=== PATIENT | male | born 1970 | race American Indian/Alaskan Native ===

== ENCOUNTER 2019-01-05 10:19 | Emergency (ER) | payer SELFPAY ==
[2019-01-05] MEDS ORDERED: BACTRIM DS PO ONE (14:09)
[2019-01-05] MEDS ORDERED: IBUPROFEN PO ONE (14:10)
--- NOTE | 2019-01-05 14:15 | Emergency Department Report ---
Abscess Boil HPI - HPI Chief Complaint: Skin/Abscess/Foreign Body Stated Complaint: ABCESS Time Seen by Provider: 01/05/19 13:21 Location: Back History: Yes Pain, Yes Purulent Drainage, Yes Previous History, No Fever, No Numbness, No Foreign Body, No Insect Bite HPI: Reports cellulitis on back for approximately 3 days. Addl Reference Text: Reports hx HIV compliant with anti-retrovirals. Reports last CD4 count approximately 450 Home Medications: Previous Rx's Medication Instructions Recorded Last Taken Type ALBUTEROL Inhaler(NF) [VENTOLIN 2 puff IH Q4-6H PRN #1 inha 11/10/18 Unknown Rx Inhaler(NF)] Prednisone [predniSONE 10 mg 10 mg PO .TAPER #1 tab.ds.pk 11/10/18 Unknown Rx (6-Day Pack, 21 Tabs)] Ibuprofen [Motrin 600 MG tab] 600 mg PO Q8H PRN #12 tablet 01/05/19 Unknown Rx Sulfamethoxazole/Trimethoprim 1 each PO BID 10 Days #20 tablet 01/05/19 Unknown Rx [Bactrim DS TAB] Allergies/Adverse Reactions: Allergies Allergy/AdvReac Type Severity Reaction Status Date / Time No Known Allergies Allergy Verified 01/05/19 10:25 ED Review of Systems ROS: Stated complaint: ABCESS Other details as noted in HPI Other: GENERAL: No weight change, fatigue, weakness, fever, chills, or night sweats SKIN: Reports cellulitis on back left shoulder. No changes itching, no jaundice HEAD: No trauma, headache, or visual changes EYES: No blurriness, tearing, itching, acute visual loss, conjunctival discoloration, or scleral icterus EARS: No hearing loss, tinnitus, vertigo, or earache NOSE: No rhinorrhea, stuffiness, sneezing, itching, or epistaxis MOUTH: No bleeding gums, hoarseness, sore throat, or swelling CARDIAC: No new murmur, chest pain, palpitations, dyspnea on exertion, orthopnea, PND, or edema RESPIRATORY: No shortness of breath, wheeze, cough, sputum production, hemoptys is, pneumonia, asthma, bronchitis, or emphysema GI: No change in appetite, nausea, vomiting, dysphagia, change in bowel frequency, diarrhea, constipation, bleeding, hematemesis, melena, hematochezia, or abdominal pain URINARY: No frequency, urgency, polyuria, dysuria, hematuria, or incontinence MUSCULOSKELETAL: No muscle weakness, joint stiffness, decrease in range of motion, redness, swelling NEUROLOGIC: No loss of sensation, numbness, tingling, tremors, weakness, paralysis, seizures HEMATOLOGIC: No anemia, easy bruising, bleeding, petechiae, or purpura ENDOCRINE: No hot or cold intolerance, sweating, polyuria, polydipsia or, polyphagia no thyroid problems PSYCHIATRIC: No change in mood, no anxiety, no depression ED Past Medical Hx - Past Medical History Hx Hypertension: Yes Hx Asthma: Yes - Social History Smoking Status: Current Every Day Smoker Substance Use Type: None - Medications Home Medications: Home Medications Medication Instructions Recorded Confirmed Last Taken Type ALBUTEROL Inhaler(NF) [VENTOLIN 2 puff IH Q4-6H PRN #1 inha 11/10/18 Unknown Rx Inhaler(NF)] Prednisone [predniSONE 10 mg 10 mg PO .TAPER #1 tab.ds.pk 11/10/18 Unknown Rx (6-Day Pack, 21 Tabs)] Ibuprofen [Motrin 600 MG tab] 600 mg PO Q8H PRN #12 tablet 01/05/19 Unknown Rx Sulfamethoxazole/Trimethoprim 1 each PO BID 10 Days #20 tablet 01/05/19 Unknown Rx [Bactrim DS TAB] ED Abscess Boil Physical Exam - Exam General: Vital signs noted. No distress. Alert and acting appropriately. Exam: GENERAL: Patient in no acute distress. HEAD: Normocephalic, atraumatic. HEART: Normal circulation. LUNGS: No respiratory distress. MUSCULOSKELETAL: Normal joint range of motion, no redness, no swelling, no tenderness. NEUROLOGIC: GCS 15, Alert and Oriented x3, Cranial nerves intact, normal sensation, normal strength, normal gait, no cerebellar deficit. PSYCHIATRIC: No homicidal or suicidal ideation, no anxiety, no depression, no hallucinations. SKIN: Left superficial skin over scapula with yellowish drainage, mild erythema. Diameter approximately 3 cm. Skin is warm and dry, ED Course Vital Signs 01/05/19 10:24 Temperature 98.8 F Pulse Rate 102 H Respiratory 18 Rate Blood Pressure 153/100 O2 Sat by Pulse 98 Oximetry Critical care attestation.: If time is entered above; I have spent that time in minutes in the direct care of this critically ill patient, excluding procedure time. ED Medical Decision Making - Medical Decision Making Patient comfortable. Plan discharge with outpatient follow up. Agrees to return if any worsening. ED Disposition Clinical Impression: Cellulitis Qualifiers: Site of cellulitis: unspecified site Qualified Code(s): L03.90 - Cellulitis, unspecified Disposition: TO HOME OR SELFCARE Is pt being admited?: No Condition: Stable Instructions: Cellulitis (ED) Prescriptions: Sulfamethoxazole/Trimethoprim [Bactrim DS TAB] 1 each PO BID 10 Days #20 tablet Ibuprofen [Motrin 600 MG tab] 600 mg PO Q8H PRN #12 tablet PRN Reason: Pain Referrals: YULISA ERAZO MD [Primary Care Provider] - 3-5 Days
[2019-01-05 14:24] VITALS: BP 159/99
== END 2019-01-05 14:25 | disposition home or self-care (01) ==
LOC: ED 10:19
DX: L03.312 Cellulitis of back [any part except buttock and flank] (principal); I10 Essential (primary) hypertension; J45.909 Unspecified asthma, uncomplicated; Z79.899 Other long term (current) drug therapy
CPT/HCPCS: 99282

== ENCOUNTER 2019-02-04 00:15 | Emergency (ER) | payer SELFPAY ==
[2019-02-04] MEDS: DUONEB *Not for PRN Use IH ONE ×2 (01:03→02:15)
[2019-02-04 01:34] LABS: Hematocrit 37.4 % (35.5-45.6); Hemoglobin 12.5 gm/dl (11.8-15.2); Mean Corpuscular HGB Conc 34 % (32-34); Mean Corpuscular Volume 77 fl (84-94); Platelet Count 200 K/mm3 (140-440); Red Blood Count 4.84 M/mm3 (3.65-5.03); Red Cell Distribution Width 16.8 % (13.2-15.2)
[2019-02-04] MEDS ORDERED: MAGNESIUM SULFATE 2GM/50ML 2 GM/50 ML BAG IV ONE (01:36)
[2019-02-04] MEDS ORDERED: SOLU-Medrol IV ONE (01:36)
[2019-02-04] MEDS ORDERED: ATROVENT IH ONE (01:36)
[2019-02-04] MEDS ORDERED: PROVENTIL IH ONE (01:36)
--- NOTE | 2019-02-04 01:42 | XRay Report ---
CHEST 1 VIEW INDICATION / CLINICAL INFORMATION: sob, cp, asthma. COMPARISON: None available. FINDINGS: SUPPORT DEVICES: None. HEART / MEDIASTINUM: No significant abnormality. LUNGS / PLEURA: No significant pulmonary or pleural abnormality. No pneumothorax. ADDITIONAL FINDINGS: No significant additional findings. IMPRESSION: No acute pulmonary or pleural abnormality. Signer Name: Jose Francisco Mayo MD FACR Signed: 02/04/2019 1:38 AM Workstation Name: [id number]
[2019-02-04 01:55] LABS: BUN/Creatinine Ratio 13; Blood Urea Nitrogen 14 mg/dL (9-20); Calcium 9.1 mg/dL (8.4-10.2); Hemolysis Index 7
[2019-02-04 03:12] LABS: Hypochromasia 1+; Total Cells Counted 100
--- NOTE | 2019-02-04 03:12 | Emergency Department Report ---
ED Shortness of Breath HPI - General Chief Complaint: Dyspnea/Respdistress Stated Complaint: DIFFICULTY IN BREATHING Time Seen by Provider: 02/04/19 01:35 Source: patient Mode of arrival: Ambulatory Limitations: No Limitations - History of Present Illness Initial Comments: 48-year-old male with past medical history of asthma and hypertension presents to the hospital complaining of shortness of breath and wheezing 2 days. Patient has been using his home nebulizer and inhalers without relief. Patient having generalized chest tightness, wheezing, and nonproductive cough. No complaints of fever, calf tenderness, or leg edema. Patient wheezing upon arrival which persists despite one dual neb prior to my evaluation. Patient is not currently on steroids and denies previous history of intubations. - Related Data Previous Rx's Medication Instructions Recorded Last Taken Type ALBUTEROL Inhaler(NF) [VENTOLIN 2 puff IH Q4-6H PRN #1 inha 11/10/18 Unknown Rx Inhaler(NF)] Ibuprofen [Motrin 600 MG tab] 600 mg PO Q8H PRN #12 tablet 01/05/19 Unknown Rx Sulfamethoxazole/Trimethoprim 1 each PO BID 10 Days #20 tablet 01/05/19 Unknown Rx [Bactrim DS TAB] Prednisone [predniSONE 10 mg 10 mg PO .TAPER #1 tab.ds.pk 02/04/19 Unknown Rx (6-Day Pack, 21 Tabs)] Allergies Allergy/AdvReac Type Severity Reaction Status Date / Time No Known Allergies Allergy Verified 01/05/19 10:25 ED Review of Systems ROS: Stated complaint: DIFFICULTY IN BREATHING Other details as noted in HPI Comment: All other systems reviewed and negative ED Past Medical Hx - Past Medical History Previous Medical History?: Yes Hx Hypertension: Yes Hx Asthma: Yes - Surgical History Past Surgical History?: No - Social History Smoking Status: Current Every Day Smoker Substance Use Type: Alcohol - Medications Home Medications: Home Medications Medication Instructions Recorded Confirmed Last Taken Type ALBUTEROL Inhaler(NF) [VENTOLIN 2 puff IH Q4-6H PRN #1 inha 11/10/18 Unknown Rx Inhaler(NF)] Ibuprofen [Motrin 600 MG tab] 600 mg PO Q8H PRN #12 tablet 01/05/19 Unknown Rx Sulfamethoxazole/Trimethoprim 1 each PO BID 10 Days #20 tablet 01/05/19 Unknown Rx [Bactrim DS TAB] Prednisone [predniSONE 10 mg 10 mg PO .TAPER #1 tab.ds.pk 02/04/19 Unknown Rx (6-Day Pack, 21 Tabs)] ED Physical Exam - General Limitations: No Limitations - Other Other exam information: General: No limitations, patient is alert in no acute distress Head exam: Atraumatic, normocephalic Eyes exam: Normal appearance ENT: Moist mucous membrane, normal oropharynx Neck exam: Normal inspection, full range of motion, no meningismus nontender Respiratory exam: Bilateral wheezing without Cardiovascular: Normal rate and rhythm, normal heart sounds Abdomen: Soft, nondistended, and nontender, with normal bowel sounds, no rebound, or guarding Extremity: Full range of motion normal inspection no deformity, tenderness or leg edema Back: Normal Inspection, full range of motion, no tenderness Neurologic: Alert, oriented x3, cranial nerves intact, no motor or sensory deficit Psychiatric: normal affect, normal mood Skin: Warm, dry, intact ED Course Vital Signs 02/04/19 02/04/19 02/04/19 00:18 01:10 03:14 Temperature 98.0 F Pulse Rate 102 H 96 H Pulse Rate [ 88 Bilateral Throughout] Respiratory 18 22 Rate Respiratory 20 Rate [Bilateral Throughout] Blood Pressure 179/111 Blood Pressure 132/97 [Left] O2 Sat by Pulse 94 96 Oximetry 02/04/19 04:30 Temperature Pulse Rate 94 H Pulse Rate [ Bilateral Throughout] Respiratory 21 Rate Respiratory Rate [Bilateral Throughout] Blood Pressure Blood Pressure 148/90 [Left] O2 Sat by Pulse 95 Oximetry ED Medical Decision Making - Lab Data Result diagrams: 02/04/19 01:20 02/04/19 01:22 Lab Results 02/04/19 02/04/19 02/04/19 Range/Units 01:20 01:22 04:25 WBC 6.2 (4.5-11.0) K/mm3 RBC 4.84 (3.65-5.03) M/mm3 Hgb 12.5 (11.8-15.2) gm/dl Hct 37.4 (35.5-45.6) % MCV 77 L (84-94) fl MCH 26 L (28-32) pg MCHC 34 (32-34) % RDW 16.8 H (13.2-15.2) % Plt Count 200 (140-440) K/mm3 Eos % (Auto) Cancellation Clerk Add Manual Diff Complete Total Counted 100 Seg Neuts % (Manual) 51.0 (40.0-70.0) % Band Neutrophils % 0 % Lymphocytes % (Manual) 26.0 (13.4-35.0) % Reactive Lymphs % (Man) 0 % Monocytes % (Manual) 8.0 H (0.0-7.3) % Eosinophils % (Manual) 14.0 H (0.0-4.3) % Basophils % (Manual) 1.0 (0.0-1.8) % Metamyelocytes % 0 % Myelocytes % 0 % Promyelocytes % 0 % Blast Cells % 0 % Nucleated RBC % Not Reportable Seg Neutrophils # Man 3.2 (1.8-7.7) K/mm3 Band Neutrophils # 0.0 K/mm3 Lymphocytes # (Manual) 1.6 (1.2-5.4) K/mm3 Abs React Lymphs (Man) 0.0 K/mm3 Monocytes # (Manual) 0.5 (0.0-0.8) K/mm3 Eosinophils # (Manual) 0.9 H (0.0-0.4) K/mm3 Basophils # (Manual) 0.1 (0.0-0.1) K/mm3 Metamyelocytes # 0.0 K/mm3 Myelocytes # 0.0 K/mm3 Promyelocytes # 0.0 K/mm3 Blast Cells # 0.0 K/mm3 WBC Morphology Not Reportable Hypersegmented Neuts Not Reportable Hyposegmented Neuts Not Reportable Hypogranular Neuts Not Reportable Smudge Cells Not Reportable Toxic Granulation Not Reportable Toxic Vacuolation Not Reportable Dohle Bodies Not Reportable Pelger-Huet Anomaly Not Reportable Shelly Rods Not Reportable Platelet Estimate Not Reportable Clumped Platelets Not Reportable Plt Clumps, EDTA Not Reportable Large Platelets Not Reportable Giant Platelets Not Reportable Platelet Satelliting Not Reportable Plt Morphology Comment Not Reportable RBC Morphology Not Reportable Dimorphic RBCs Not Reportable Polychromasia Not Reportable Hypochromasia 1+ Poikilocytosis Not Reportable Anisocytosis Not Reportable Microcytosis Not Reportable Macrocytosis Not Reportable Spherocytes Not Reportable Pappenheimer Bodies Not Reportable Sickle Cells Not Reportable Target Cells Not Reportable Tear Drop Cells Not Reportable Ovalocytes Not Reportable Helmet Cells Not Reportable Ruvalcaba-Alix Bodies Not Reportable Dysart Rings Not Reportable Carol Cells Not Reportable Bite Cells Not Reportable Crenated Cell Not Reportable Elliptocytes Not Reportable Acanthocytes (Spur) Not Reportable Rouleaux Not Reportable Hemoglobin C Crystals Not Reportable Schistocytes Not Reportable Malaria parasites Not Reportable Alexis Bodies Not Reportable Hem Pathologist Commnt No Sodium 136 L (137-145) mmol/L Potassium 3.7 (3.6-5.0) mmol/L Chloride 101.7 (98-107) mmol/L Carbon Dioxide 27 (22-30) mmol/L Anion Gap 11 mmol/L BUN 14 (9-20) mg/dL Creatinine 1.1 (0.8-1.5) mg/dL Estimated GFR > 60 ml/min BUN/Creatinine Ratio 13 % Glucose 81 (75-100) mg/dL Calcium 9.1 (8.4-10.2) mg/dL CK-MB (CK-2) 7.8 H (0.0-4.0) ng/mL Troponin T 0.065 H (0.00-0.029) ng/mL - EKG Data -: EKG Interpreted by Ne EKG shows normal: sinus rhythm, ST-T waves (no stemi) Rate: normal (97) - EKG Data When compared to previous EKG there are: previous EKG unavailable - Radiology Data Radiology results: report reviewed cxr: naf - Medical Decision Making repeat trop 0.037 trop mildly elevated without cardiac symptoms. Patient states he has chest tightness associated wheezing or asthma. The troponin shows that level has decreased. Patient felt better with ED treatment for asthma will be discharged. - Differential Diagnosis asthma, CHF, DE, pneumonia Critical Care Time: No Critical care attestation.: If time is entered above; I have spent that time in minutes in the direct care of this critically ill patient, excluding procedure time. ED Disposition Clinical Impression: Asthma exacerbation Disposition: DC-01 TO HOME OR SELFCARE Is pt being admited?: No Does the pt Need Aspirin: No Condition: Stable Instructions: Asthma (ED) Additional Instructions: Take the medication as prescribed. Follow up with your doctor or the clinic/doctor provided. Return if symptoms worsen as indicated by your discharge instructions Prescriptions: Prednisone [predniSONE 10 mg (6-Day Pack, 21 Tabs)] 10 mg PO .TAPER #1 tab.ds.pk Referrals: [facility] MD AMANDA [Primary Care Provider] - 3-5 Days Time of Disposition: 06:05
[2019-02-04 04:44] VITALS: BP 148/90
[2019-02-04 05:23] LABS: Creatine Kinase MB 7.8 ng/mL (0.0-4.0)
[2019-02-04 06:18] LABS: Chol/HDL Ratio 3.77 %
== END 2019-02-04 06:10 | disposition home or self-care (01) ==
LOC: ED 00:15
DX: J45.901 Unspecified asthma with (acute) exacerbation (principal); I10 Essential (primary) hypertension; J45.909 Unspecified asthma, uncomplicated; F17.200 Nicotine dependence, unspecified, uncomplicated; Z79.899 Other long term (current) drug therapy
CPT/HCPCS: 36415; 71045; 80048; 80061; 82550; 82553; 84484; 85007; 85025; 93005; 93010; 94644; 96365; 96375; 99284; J2930; J3475

== ENCOUNTER 2019-04-26 21:25 | Emergency (ER) | payer OTHER ==
[2019-04-26 21:37] VITALS: BP 118/74
--- NOTE | 2019-04-26 21:47 | Event Note ---
ED Screening Note Date of service: 04/26/19 Time: 21:43 ED Screening Note: This is a 48 y.o. M. that presents to the ER with cough, chills, and chest pain x 2 days. PMH of asthma, HIV, and HTN Patient states he started taking bactrim yesterday. This initial assessment/diagnostic orders/clinical plan/treatment(s) is/are subject to change based on patients health status, clinical progression and re- assessment by fellow clinical providers in the ED. Further treatment and workup at subsequent clinical providers discretion. Patient/guardian urged not to elope from the ED as their condition may be serious if not clinically assessed and managed. Initial orders include: CXR
[2019-04-26] MEDS ORDERED: DUONEB *Not for PRN Use IH ONE (22:15)
[2019-04-26] MEDS ORDERED: ROCEPHIN IM ONE (22:15)
[2019-04-26] MEDS ORDERED: XYLOCAINE 1% MPF 5 mL INFILTRATI ONE (22:15)
--- NOTE | 2019-04-26 22:17 | XRay Report ---
CHEST 2 VIEWS INDICATION / CLINICAL INFORMATION: MAIN: cough/DEEJAY FOR 3 DAYS. COMPARISON: 02/04/2019 chest radiograph FINDINGS: SUPPORT DEVICES: None. HEART / MEDIASTINUM: No significant abnormality. LUNGS / PLEURA: Widespread hazy and patchy airspace opacities are present in both lungs, with the mos t confluent area in the retrocardiac left lower lobe. No pleural fluid. No pneumothorax. ADDITIONAL FINDINGS: No significant additional findings. IMPRESSION: 1. Patchy airspace disease in both lungs probably represents pneumonia. Signer Name: Yuval Raymundo MD Signed: 04/26/2019 10:13 PM Workstation Name: [id number]
--- NOTE | 2019-04-26 22:20 | Emergency Department Report ---
<LILLY KAY - Last Filed: 04/26/19 22:33> ED General Adult HPI - General Chief complaint: Dyspnea/Respdistress Stated complaint: FLU SX Time Seen by Provider: 04/26/19 21:42 - History of Present Illness Initial comments: Mr. Cook has HIV/AIDS, hx of PCP, currently on Bactrim therapy. According to his report, his viral load is elevated with low T cell count according to his report. He is followed at [facility] clinic. I have given him the diagnosis of pneumonia after reviewing his radiographs results. On auscultation he has rhonchi rales on exam. I strongly recommended admission to the hospital for antibiotics and further evaluation. He politely declined. He understands the risks alternatives benefits of admission including respiratory failure and . He is leaving AGAINST MEDICAL ADVICE. We have prescribed doxycycline and Bactrim. He will follow with his practitioner at the [facility] clinic. - Related Data Previous Rx's Medication Instructions Recorded Last Taken Type ALBUTEROL Inhaler(NF) [VENTOLIN 2 puff IH Q4-6H PRN #1 inha 11/10/18 Unknown Rx Inhaler(NF)] Ibuprofen [Motrin 600 MG tab] 600 mg PO Q8H PRN #12 tablet 01/05/19 Unknown Rx Sulfamethoxazole/Trimethoprim 1 each PO BID 10 Days #20 tablet 01/05/19 Unknown Rx [Bactrim DS TAB] Prednisone [predniSONE 10 mg 10 mg PO .TAPER #1 tab.ds.pk 02/04/19 Unknown Rx (6-Day Pack, 21 Tabs)] Doxycycline Hyclate [Doxycycline 100 mg PO BID 8 Days #14 tab 04/26/19 Unknown Rx Hyclate TAB] Sulfamethoxazole/Trimethoprim 2 each PO QID 21 Days #168 tablet 04/26/19 Unknown Rx [Bactrim DS TAB] Allergies Allergy/AdvReac Type Severity Reaction Status Date / Time No Known Allergies Allergy Verified 01/05/19 10:25 ED Past Medical Hx - Medications Home Medications: Home Medications Medication Instructions Recorded Confirmed Last Taken Type ALBUTEROL Inhaler(NF) [VENTOLIN 2 puff IH Q4-6H PRN #1 inha 11/10/18 Unknown Rx Inhaler(NF)] Ibuprofen [Motrin 600 MG tab] 600 mg PO Q8H PRN #12 tablet 01/05/19 Unknown Rx Sulfamethoxazole/Trimethoprim 1 each PO BID 10 Days #20 tablet 01/05/19 Unknown Rx [Bactrim DS TAB] Prednisone [predniSONE 10 mg 10 mg PO .TAPER #1 tab.ds.pk 02/04/19 Unknown Rx (6-Day Pack, 21 Tabs)] Doxycycline Hyclate [Doxycycline 100 mg PO BID 8 Days #14 tab 04/26/19 Unknown Rx Hyclate TAB] Sulfamethoxazole/Trimethoprim 2 each PO QID 21 Days #168 tablet 04/26/19 Unknown Rx [Bactrim DS TAB] ED Disposition Clinical Impression: HIV (human immunodeficiency virus infection) Qualifiers: HIV symptom status: unspecified Qualified Code(s): B20 - Human immunodeficiency virus [HIV] disease Pneumonia Qualifiers: Pneumonia type: due to unspecified organism Laterality: bilateral Lung location: unspecified part of lung Qualified Code(s): J18.9 - Pneumonia, unspecified organism Disposition: LEFT AGAINST MED ADVICE Is pt being admited?: No Does the pt Need Aspirin: No Condition: Stable Instructions: Bacterial Pneumonia (ED) Additional Instructions: Please return to the ER for hospital admission. Otherwise, please see your provider at the [facility] clinic on Sunday. Prescriptions: Sulfamethoxazole/Trimethoprim [Bactrim DS TAB] 2 each PO QID 21 Days #168 tablet Doxycycline Hyclate [Doxycycline Hyclate TAB] 100 mg PO BID 8 Days #14 tab Referrals: VELVET FLANNERY MD [Staff Physician] - 2-3 Days PRIMARY CAREMD [Primary Care Provider] - 2-3 Days Forms: AMA Form <USHA HAMPTON - Last Filed: 04/26/19 23:52> ED General Adult HPI - General Source: patient Mode of arrival: Ambulatory Limitations: No Limitations - History of Present Illness Initial comments: Patient is a 48-year-old male presents emergency room with complaints of a cough that began 3 days ago. Patient states that he has associated mucus production. He has associated chills, decreased appetite, and chest discomfort after frequent coughing. He denies any sore throat, ear pain. Patient has a past medical history of asthma, HIV positive on antivirals and Bactrim. pt states he uses nebulizer treatments and inhalers at home for his asthma. states he is a former smoker states he quit one month ago. ED Review of Systems ROS: Stated complaint: FLU SX Other details as noted in HPI Comment: All other systems reviewed and negative ED Past Medical Hx - Past Medical History Previous Medical History?: Yes Hx Hypertension: Yes Hx Asthma: Yes Hx HIV: Yes - Surgical History Past Surgical History?: No - Social History Smoking Status: Former Smoker ED Physical Exam - General Limitations: No Limitations General appearance: alert, in no apparent distress - Head Head exam: Present: atraumatic, normocephalic - Eye Eye exam: Present: normal appearance - ENT ENT exam: Present: mucous membranes moist - Respiratory Respiratory exam: Present: wheezes (bilaterally), rales (bilaterally), rhonchi (bilaterally), prolonged expiratory. Absent: respiratory distress, stridor, chest wall tenderness, accessory muscle use, decreased breath sounds - Cardiovascular Cardiovascular Exam: Present: normal rhythm, tachycardia (mild), normal heart sounds. Absent: systolic murmur, diastolic murmur, rubs, gallop - Neurological Exam Neurological exam: Present: alert, oriented X3 - Psychiatric Psychiatric exam: Present: normal affect, normal mood - Skin Skin exam: Present: warm, dry, intact ED Course Vital Signs 04/26/19 04/26/19 04/26/19 21:34 21:43 23:06 Temperature 98.5 F 98.5 F Pulse Rate 105 H 105 H 94 H Respiratory 18 18 Rate Blood Pressure 118/74 118/74 O2 Sat by Pulse 92 94 96 Oximetry ED Medical Decision Making - Radiology Data Radiology results: report reviewed CHEST 2 VIEWS INDICATION / CLINICAL INFORMATION: MAIN: cough/DEEJAY FOR 3 DAYS. COMPARISON: 02/04/2019 chest radiograph FINDINGS: SUPPORT DEVICES: None. HEART / MEDIASTINUM: No significant abnormality. LUNGS / PLEURA: Widespread hazy and patchy airspace opacities are present in both lungs, with the most confluent area in the retrocardiac left lower lobe. No pleural fluid. No pneumothorax. ADDITIONAL FINDINGS: No significant additional findings. IMPRESSION: 1. Patchy airspace disease in both lungs probably represents pneumonia. Signer Name: Yuval Raymundo MD Signed: 04/26/2019 10:13 PM Workstation Name: [id number] Transcribed By: DEON Dictated By: Yuval Raymundo MD Electronically Authenticated By: Yuval Raymundo MD Signed Date/Time: 04/26/19 2213 - Medical Decision Making Patient is a 48-year-old male presents emergency room with complaints of a cough that began 3 days ago. Patient states that he has associated mucus production. He has associated chills, decreased appetite, and chest discomfort after frequent coughing. He denies any sore throat, ear pain. Patient has a past medical history of asthma, HIV positive on antivirals and Bactrim. pt states he uses nebulizer treatments and inhalers at home for his asthma. states he is a former smoker states he quit one month ago. initial vitals with mild tachycardia and hypoxia at 94% RA. On exam patient has wheezing, rales, rhonchi bilaterally. pt given DuoNeb and 1 gram ceftriaxone injection. Patient's lung sounds slightly improved, repeat vitals with heart rate of 94 and oxygen saturation of 96% on room air. CXR shows 1. Patchy airspace disease in both lungs probably represents pneumonia. Given the patient is immune compromised and has bilateral pneumonia admission was recommended to patient for further management. pt declined he states that he needs to "get some things taken care of at home person he will return." Discussed with the patient that he would need to sign out AGAINST MEDICAL ADVICE. Patient was prescribed Bactrim for PJP pneumonia and doxycycline for CAP. AMA: The patient is alert and oriented 3. The patient exhibits decision-making capacity. patient is free from distracting injury. The risks of leaving without a complete medical examination, and AGAINST MEDICAL ADVICE, were explained to the patient, and they included , disability, paralysis, permanent loss of quality of life, worsening infection, respiratory failure. the patient verbalized understanding to these, and was able to articulate these risks in their own words. - Differential Diagnosis PNA, URI, bronchitis, viral syndrome, immunocompromised, PCP Critical care attestation.: If time is entered above; I have spent that time in minutes in the direct care of this critically ill patient, excluding procedure time. ED Disposition Is pt being admited?: No Does the pt Need Aspirin: No
== END 2019-04-26 23:17 | disposition left against medical advice (07) ==
LOC: ED 21:25
DX: J18.9 Pneumonia, unspecified organism (principal); J45.909 Unspecified asthma, uncomplicated; B20 Human immunodeficiency virus [HIV] disease; I10 Essential (primary) hypertension; Z79.899 Other long term (current) drug therapy; Z87.891 Personal history of nicotine dependence
CPT/HCPCS: 71046; 94640; 96372; 99284; J0696

== ENCOUNTER 2019-12-07 20:33 | Inpatient (IN) | payer OTHER, SELFPAY ==
[2019-12-07] MEDS ORDERED: ALBUTEROL 2.5 MG/3 ML NEBU IH ONE (20:50)
[2019-12-07] MEDS ORDERED: dexAMETHasone 20 MG/5 ML VIAL IV ONE (20:50)
[2019-12-07] MEDS ORDERED: SODIUM CHLORIDE 0.9% 1000 ML 1,000 ML IV ONE (20:50)
[2019-12-07] MEDS ORDERED: MAGNESIUM SULFATE 2 GM/50 ML BAG IV ONE (20:51)
[2019-12-07] MEDS ORDERED: dexAMETHasone 20 MG/5 ML VIAL ONE (20:53)
--- NOTE | 2019-12-07 20:54 | Emergency Department Report ---
<RADHA GAMBOA - Last Filed: 12/07/19 23:08> ED Shortness of Breath HPI - General Chief Complaint: Adult Asthma Stated Complaint: DIFFICULTY IN BREATHING Time Seen by Provider: 12/07/19 20:49 Source: patient Mode of arrival: Ambulatory Limitations: No Limitations - History of Present Illness Initial Comments: 49-year-old -[place] male presents to the emergency room for difficulty ambulating. Patient reports he has a history of asthma and HIV. Patient reports he been having trouble breathing since Sunday. He reports he has been using his inhaler and nebulizer without much relief. Patient denies any fever chills no nausea no vomiting. Patient states that he takes his HIV medications as prescribed. Patient denies any recent travels no chest pain no COVID positive contact no leg swelling no dizziness no headache. MD Complaint: shortness of breath Onset/Timin -: days(s) Pain Scale: 0 Improves With: nothing Known History Of: asthma, HIV Associated Symptoms: denies other symptoms Treatments Prior to Arrival: bronchodilator - Related Data Home Oxygen Therapy: No Home Medications Medication Instructions Recorded Confirmed Last Taken Amlodipine Besylate/Benazepril 10 mg pe PO DAILY 12/08/19 12/08/19 12/05/19 21:00 Bictegrav/Emtricit/Tenofov Ala 1 tab PO DAILY 12/08/19 12/08/19 12/05/19 21:00 Previous Rx's Medication Instructions Recorded Last Taken Type ALBUTEROL Inhaler(NF) [VENTOLIN 2 puff IH Q4-6H PRN #1 inha 11/10/18 12/06/19 22:00 Rx Inhaler(NF)] Ipratropium (Nf) [Atrovent] 2 puff IH Q6HR PRN #1 inha 12/07/19 Unknown Rx Azithromycin [Zithromax] 500 mg PO BID #8 tablet 12/09/19 Unknown Rx cefUROXime [Ceftin] 500 mg PO Q12H #8 tablet 12/09/19 Unknown Rx predniSONE [Deltasone] 50 mg PO QDAY #5 tab 12/09/19 Unknown Rx Allergies Allergy/AdvReac Type Severity Reaction Status Date / Time No Known Allergies Allergy Verified 01/05/19 10:25 ED Past Medical Hx - Past Medical History Previous Medical History?: Yes Hx Hypertension: Yes Hx Asthma: Yes Hx HIV: Yes - Surgical History Past Surgical History?: No - Social History Smoking Status: Former Smoker Substance Use Type: None - Medications Home Medications: Home Medications Medication Instructions Recorded Confirmed Last Taken Type ALBUTEROL Inhaler(NF) [VENTOLIN 2 puff IH Q4-6H PRN #1 inha 11/10/18 12/08/19 12/06/19 22:00 Rx Inhaler(NF)] Ipratropium (Nf) [Atrovent] 2 puff IH Q6HR PRN #1 inha 12/07/19 Unknown Rx Amlodipine Besylate/Benazepril 10 mg pe PO DAILY 12/08/19 12/08/19 12/05/19 21:00 History Bictegrav/Emtricit/Tenofov Ala 1 tab PO DAILY 12/08/19 12/08/19 12/05/19 21:00 History Azithromycin [Zithromax] 500 mg PO BID #8 tablet 12/09/19 Unknown Rx cefUROXime [Ceftin] 500 mg PO Q12H #8 tablet 12/09/19 Unknown Rx predniSONE [Deltasone] 50 mg PO QDAY #5 tab 12/09/19 Unknown Rx ED Physical Exam - General Limitations: No Limitations General appearance: alert, in distress - Head Head exam: Present: atraumatic, normocephalic - Eye Eye exam: Present: normal appearance - ENT ENT exam: Present: mucous membranes moist - Neck Neck exam: Present: normal inspection, full ROM - Respiratory Respiratory exam: Present: wheezes, rhonchi, accessory muscle use - Cardiovascular Cardiovascular Exam: Present: normal rhythm - GI/Abdominal GI/Abdominal exam: Present: soft, normal bowel sounds - Neurological Exam Neurological exam: Present: alert, oriented X3, normal gait - Psychiatric Psychiatric exam: Present: normal affect, normal mood - Skin Skin exam: Present: warm, dry, intact, normal color. Absent: rash ED Medical Decision Making - Lab Data Result diagrams: 12/07/19 Unknown 12/07/19 Unknown - Radiology Data Radiology results: report reviewed Referring Physician:RADHA June Name:IVA MORGANTPatient ID:[id number] of :[id number]:MaleAccession:[id number] Date:[id number] Status:Finalized Findings [facility] [address] [place] [address] XRay Report Signed Patient: IVA VASQUEZ MR#: [id number] : 1970 Acct:[id number] Age/Sex: 49 / M ADM Date: 12/07/19 Loc: ED Attending Dr: Ordering Physician: HNAY GODOY Date of Service: 12/07/19 Procedure(s): XR chest 1V ap Accession Number(s): [id number] cc: HANY GODOY Fluoro Time In Minutes: CHEST 1 VIEW INDICATION / CLINICAL INFORMATION: SOB. COMPARISON: 04/26/2019 FINDINGS: SUPPORT DEVICES: None. HEART / MEDIASTINUM: No significant abnormality. LUNGS / PLEURA: No significant pulmonary or pleural abnormality. No pneumothorax. ADDITIONAL FINDINGS: No significant additional findings. IMPRESSION: 1. No acute findings. Signer Name: Gonzalo Frazier MD Signed: 12/07/2019 9:21 PM Workstation Name: [id number] Transcribed By: DONAVON Dictated By: Gonzalo Frazier MD Electronically Authenticated By: Gonzalo Frazier MD Signed Date/Time: 12/07/192120 DD/ 18 TD/TT: - Medical Decision Making 49-year-old -[place] male presents to the emergency room for difficulty ambulating. Patient reports he has a history of asthma and HIV. Patient reports he been having trouble breathing since Sunday. He reports he has been using his inhaler and nebulizer without much relief. Patient denies any fever chills no nausea no vomiting. Patient states that he takes his HIV medications as prescribed. Patient denies any recent travels no chest pain no COVID positive contact no leg swelling no dizziness no headache. Albuterol 10 mg inhalation, Atrovent 1 mg inhalation, IV, normal saline 1 L, magnesium 2 mg IV, dexamethasone 10 mg IV. Patient be continue to monitor. Spoke to Dr. Slaughter regarding patient's condition. Informed him that we will do a CTA as patient is still pulling in the satting in the low 90s. Signing outpatient to [facility]. ED Disposition Clinical Impression: Asthma, Dyspnea Disposition: DC- TO HOME OR SELFCARE Is pt being admited?: No Does the pt Need Aspirin: No Condition: Stable <BRANDON GUZMAN - Last Filed: 12/09/19 15:16> ED Review of Systems ROS: Stated complaint: DIFFICULTY IN BREATHING Other details as noted in HPI ED Course Vital Signs 12/07/19 12/07/19 12/07/19 20:35 21:10 21:12 Temperature 98.4 F Pulse Rate 101 H Pulse Rate [ Apical] Pulse Rate [ From Monitor] Pulse Rate [ 98 H Posterior Bilateral Throughout] Respiratory 20 24 Rate Respiratory 22 Rate [Posterior Bilateral Throughout] Respiratory Rate [across chest] Blood Pressure 153/100 Blood Pressure [Left] O2 Sat by Pulse 92 92 Oximetry 12/07/19 12/07/19 12/07/19 21:19 21:51 22:32 Temperature Pulse Rate 92 H Pulse Rate [ Apical] Pulse Rate [ From Monitor] Pulse Rate [ 92 H Posterior Bilateral Throughout] Respiratory 15 Rate Respiratory 20 Rate [Posterior Bilateral Throughout] Respiratory Rate [across chest] Blood Pressure Blood Pressure 144/79 [Left] O2 Sat by Pulse 96 Oximetry 12/08/19 12/08/19 12/08/19 00:31 00:41 00:51 Temperature Pulse Rate 90 86 87 Pulse Rate [ Apical] Pulse Rate [ From Monitor] Pulse Rate [ Posterior Bilateral Throughout] Respiratory 24 19 21 Rate Respiratory Rate [Posterior Bilateral Throughout] Respiratory Rate [across chest] Blood Pressure 132/82 132/82 132/82 Blood Pressure [Left] O2 Sat by Pulse 96 98 96 Oximetry 12/08/19 12/08/19 12/08/19 01:00 01:11 01:21 Temperature Pulse Rate 83 85 84 Pulse Rate [ Apical] Pulse Rate [ From Monitor] Pulse Rate [ Posterior Bilateral Throughout] Respiratory 21 21 20 Rate Respiratory Rate [Posterior Bilateral Throughout] Respiratory Rate [across chest] Blood Pressure 165/97 165/97 165/97 Blood Pressure [Left] O2 Sat by Pulse 97 96 97 Oximetry 12/08/19 12/08/19 12/08/19 01:31 01:41 01:51 Temperature Pulse Rate 83 78 80 Pulse Rate [ Apical] Pulse Rate [ From Monitor] Pulse Rate [ Posterior Bilateral Throughout] Respiratory 20 22 18 Rate Respiratory Rate [Posterior Bilateral Throughout] Respiratory Rate [across chest] Blood Pressure 165/97 165/97 165/97 Blood Pressure [Left] O2 Sat by Pulse 97 97 97 Oximetry 12/08/19 12/08/19 12/08/19 02:00 02:11 02:21 Temperature Pulse Rate 83 85 82 Pulse Rate [ Apical] Pulse Rate [ From Monitor] Pulse Rate [ Posterior Bilateral Throughout] Respiratory 16 23 21 Rate Respiratory Rate [Posterior Bilateral Throughout] Respiratory Rate [across chest] Blood Pressure 150/77 150/77 150/77 Blood Pressure [Left] O2 Sat by Pulse 96 96 97 Oximetry 12/08/19 12/08/19 12/08/19 02:35 02:41 02:51 Temperature Pulse Rate 80 82 84 Pulse Rate [ Apical] Pulse Rate [ From Monitor] Pulse Rate [ Posterior Bilateral Throughout] Respiratory 19 20 20 Rate Respiratory Rate [Posterior Bilateral Throughout] Respiratory Rate [across chest] Blood Pressure 150/77 150/77 150/77 Blood Pressure [Left] O2 Sat by Pulse 98 98 99 Oximetry 12/08/19 12/08/19 12/08/19 03:01 03:11 03:21 Temperature Pulse Rate 79 85 83 Pulse Rate [ Apical] Pulse Rate [ From Monitor] Pulse Rate [ Posterior Bilateral Throughout] Respiratory 20 21 20 Rate Respiratory Rate [Posterior Bilateral Throughout] Respiratory Rate [across chest] Blood Pressure 150/77 150/77 150/77 Blood Pressure [Left] O2 Sat by Pulse 99 96 93 Oximetry 12/08/19 12/08/19 12/08/19 03:31 03:41 03:51 Temperature Pulse Rate 85 81 77 Pulse Rate [ Apical] Pulse Rate [ From Monitor] Pulse Rate [ Posterior Bilateral Throughout] Respiratory 19 20 18 Rate Respiratory Rate [Posterior Bilateral Throughout] Respiratory Rate [across chest] Blood Pressure 150/77 150/77 150/77 Blood Pressure [Left] O2 Sat by Pulse 96 95 92 Oximetry 12/08/19 12/08/19 12/08/19 04:01 04:11 04:21 Temperature Pulse Rate 75 73 77 Pulse Rate [ Apical] Pulse Rate [ From Monitor] Pulse Rate [ Posterior Bilateral Throughout] Respiratory 18 16 18 Rate Respiratory Rate [Posterior Bilateral Throughout] Respiratory Rate [across chest] Blood Pressure 150/77 150/77 150/77 Blood Pressure [Left] O2 Sat by Pulse 93 90 92 Oximetry 12/08/19 12/08/19 12/08/19 04:31 04:41 04:51 Temperature Pulse Rate 72 72 75 Pulse Rate [ Apical] Pulse Rate [ From Monitor] Pulse Rate [ Posterior Bilateral Throughout] Respiratory 18 16 16 Rate Respiratory Rate [Posterior Bilateral Throughout] Respiratory Rate [across chest] Blood Pressure 150/77 150/77 150/77 Blood Pressure [Left] O2 Sat by Pulse 92 91 90 Oximetry 12/08/19 12/08/19 12/08/19 05:01 05:05 05:11 Temperature Pulse Rate 74 67 Pulse Rate [ Apical] Pulse Rate [ From Monitor] Pulse Rate [ 75 Posterior Bilateral Throughout] Respiratory 18 17 Rate Respiratory 16 Rate [Posterior Bilateral Throughout] Respiratory Rate [across chest] Blood Pressure 150/77 150/77 Blood Pressure [Left] O2 Sat by Pulse 94 97 Oximetry 12/08/19 12/08/19 12/08/19 05:21 05:31 05:41 Temperature Pulse Rate 68 68 67 Pulse Rate [ Apical] Pulse Rate [ From Monitor] Pulse Rate [ Posterior Bilateral Throughout] Respiratory 16 17 16 Rate Respiratory Rate [Posterior Bilateral Throughout] Respiratory Rate [across chest] Blood Pressure 150/77 150/77 150/77 Blood Pressure [Left] O2 Sat by Pulse 97 97 98 Oximetry 12/08/19 12/08/19 12/08/19 05:51 06:01 06:11 Temperature Pulse Rate 67 66 65 Pulse Rate [ Apical] Pulse Rate [ From Monitor] Pulse Rate [ Posterior Bilateral Throughout] Respiratory 16 18 15 Rate Respiratory Rate [Posterior Bilateral Throughout] Respiratory Rate [across chest] Blood Pressure 150/77 150/77 150/77 Blood Pressure [Left] O2 Sat by Pulse 98 97 98 Oximetry 12/08/19 12/08/19 12/08/19 06:21 06:31 06:41 Temperature Pulse Rate 68 67 66 Pulse Rate [ Apical] Pulse Rate [ From Monitor] Pulse Rate [ Posterior Bilateral Throughout] Respiratory 18 17 16 Rate Respiratory Rate [Posterior Bilateral Throughout] Respiratory Rate [across chest] Blood Pressure 150/77 133/83 133/83 Blood Pressure 133/83 [Left] O2 Sat by Pulse 98 97 97 Oximetry 12/08/19 12/08/19 12/08/19 06:51 07:01 07:11 Temperature Pulse Rate 67 70 71 Pulse Rate [ Apical] Pulse Rate [ From Monitor] Pulse Rate [ Posterior Bilateral Throughout] Respiratory 16 16 19 Rate Respiratory Rate [Posterior Bilateral Throughout] Respiratory Rate [across chest] Blood Pressure 133/83 114/69 114/69 Blood Pressure [Left] O2 Sat by Pulse 97 95 96 Oximetry 12/08/19 12/08/19 12/08/19 07:21 07:31 07:41 Temperature Pulse Rate 69 71 65 Pulse Rate [ Apical] Pulse Rate [ From Monitor] Pulse Rate [ Posterior Bilateral Throughout] Respiratory 18 15 16 Rate Respiratory Rate [Posterior Bilateral Throughout] Respiratory Rate [across chest] Blood Pressure 114/69 114/69 114/69 Blood Pressure [Left] O2 Sat by Pulse 96 96 97 Oximetry 12/08/19 12/08/19 12/08/19 07:51 08:00 08:11 Temperature Pulse Rate 66 77 67 Pulse Rate [ Apical] Pulse Rate [ From Monitor] Pulse Rate [ 85 Posterior Bilateral Throughout] Respiratory 14 20 16 Rate Respiratory 18 Rate [Posterior Bilateral Throughout] Respiratory Rate [across chest] Blood Pressure 114/69 132/85 132/85 Blood Pressure [Left] O2 Sat by Pulse 96 95 95 Oximetry 12/08/19 12/08/19 12/08/19 08:21 08:31 08:41 Temperature Pulse Rate 75 69 81 Pulse Rate [ Apical] Pulse Rate [ From Monitor] Pulse Rate [ Posterior Bilateral Throughout] Respiratory 21 19 17 Rate Respiratory Rate [Posterior Bilateral Throughout] Respiratory Rate [across chest] Blood Pressure 132/85 132/85 132/85 Blood Pressure [Left] O2 Sat by Pulse 96 95 95 Oximetry 12/08/19 12/08/19 12/08/19 09:59 10:00 12:00 Temperature 98.0 F 98 F Pulse Rate 85 84 Pulse Rate [ 84 Apical] Pulse Rate [ 84 From Monitor] Pulse Rate [ Posterior Bilateral Throughout] Respiratory 21 Rate Respiratory Rate [Posterior Bilateral Throughout] Respiratory 21 Rate [across chest] Blood Pressure Blood Pressure 151/95 [Left] O2 Sat by Pulse 93 Oximetry 12/08/19 13:00 Temperature Pulse Rate Pulse Rate [ 69 Apical] Pulse Rate [ 69 From Monitor] Pulse Rate [ Posterior Bilateral Throughout] Respiratory 17 Rate Respiratory Rate [Posterior Bilateral Throughout] Respiratory Rate [across chest] Blood Pressure Blood Pressure [Left] O2 Sat by Pulse 97 Oximetry ED Medical Decision Making - Lab Data Result diagrams: 12/09/19 04:53 12/09/19 04:53 - Medical Decision Making 49-year-old male past history of HIV presents emergency department complaining of shortness of breath, chest tightness and wheezing. His CT scan was found to have bilateral multifocal pneumonia. At the discovery of these new new findings coupled with elevated white count and Rubalcava presentation initiated COVID 19 and droplet protocol. I alerted the hospitalist Dr. Mckenzie and Dr. Slaughter of the need for admission started him on Rocephin and Zithromax in the COVID-19 laboratory protocol. Nursing staff was also alerted of the newfound concerns. Discussed this with the patient as well home agrees to the need for for admission. Critical care attestation.: If time is entered above; I have spent that time in minutes in the direct care of this critically ill patient, excluding procedure time. ED Disposition Is pt being admited?: Yes Does the pt Need Aspirin: No
[2019-12-07] MEDS ORDERED: IPRATROPIUM 0.02% NEBU 2.5 ML IH ONE ×2 (21:05→21:10)
--- NOTE | 2019-12-07 21:25 | XRay Report ---
CHEST 1 VIEW INDICATION / CLINICAL INFORMATION: SOB. COMPARISON: 04/26/2019 FINDINGS: SUPPORT DEVICES: None. HEART / MEDIASTINUM: No significant abnormality. LUNGS / PLEURA: No significant pulmonary or pleural abnormality. No pneumothorax. ADDITIONAL FINDINGS: No significant additional findings. IMPRESSION: 1. No acute findings. Signer Name: Gonzalo Frazier MD Signed: 12/07/2019 9:21 PM Workstation Name: [id number]
[2019-12-07 22:46] LABS: Basophils # (Auto) 0.1 K/mm3 (0.0-0.1); Basophils % (Auto) 0.3 % (0.0-1.8); Eosinophils # (Auto) 0.5 K/mm3 (0.0-0.4); Eosinophils % (Auto) 2.9 % (0.0-4.3); Hematocrit 37.7 % (35.5-45.6); Hemoglobin 12.7 gm/dl (11.8-15.2); Lymphocytes # (Auto) 1.2 K/mm3 (1.2-5.4); Lymphocytes % (Auto) 7.6 % (13.4-35.0); Mean Corpuscular HGB Conc 34 % (32-34); Mean Corpuscular Volume 79 fl (84-94); Monocytes # (Auto) 0.7 K/mm3 (0.0-0.8); Monocytes % (Auto) 4.2 % (0.0-7.3); Platelet Count 221 K/mm3 (140-440); Red Blood Count 4.77 M/mm3 (3.65-5.03); Red Cell Distribution Width 17.7 % (13.2-15.2)
[2019-12-07 23:06] LABS: BUN/Creatinine Ratio 13; Blood Urea Nitrogen 18 mg/dL (9-20); Hemolysis Index 1
--- NOTE | 2019-12-07 23:56 | Cat Scan Report ---
CTA CHEST WITH IV CONTRAST INDICATION: MAIN: SOB 100cc ofjn361. Acute onset chest pain with dyspnea TECHNIQUE: Axial CT images were obtained through the chest after injection of 100 mL IV contrast. 3 plane MIP re constructions were produced. All CT scans at this location are performed using CT dose reduction for ALARA by means of automated exposure control. COMPARISON: None available. FINDINGS: PULMONARY ARTERIES: No definite pulmonary thromboemboli identified however there is slight respirator y motion artifact on this exam somewhat limiting this finding. AORTA AND ARTERIES: No acute abnormality. MEDIASTINUM: No mass, lymphadenopathy or other significant abnormality aside from reactive nodes with in the mediastinum and hilum. The heart is normal in size without a pericardial effusion. The trachea and main bronchi are patent and normal in caliber. LUNGS: Multifocal bronchopneumonia with bronchial thickening bilaterally. ADDITIONAL FINDINGS: None. UPPER ABDOMEN: No acute findings. BONES: No significant osseous abnormality. IMPRESSION: 1. No CT evidence for pulmonary embolism. 2. Multifocal bronchopneumonia throughout both lungs, as above. Signer Name: Sixto Collier MD Signed: 12/07/2019 11:52 PM Workstation Name: [id number]
[2019-12-08] MEDS ORDERED: cefTRIAXone/NS 1 GM/50 ML 1 GM/50 ML BAG IV ONE ×2 (00:31→01:34)
[2019-12-08] MEDS ORDERED: AZITHROMYCIN 500 MG in SODIUM CHLORIDE 0.9% 250ML 250 ML IV ONE (01:00)
[2019-12-08] MEDS ORDERED: ONDANSETRON 4 MG/2 ML INJ IV PRN (01:16)
[2019-12-08] MEDS ORDERED: MAGNESIUM HYDROXIDE (MOM) ORAL LIQD UDC PO PRN (01:16)
--- NOTE | 2019-12-08 01:32 | History and Physical Report ---
History of Present Illness Date of examination: 12/08/19 Date of admission: 12/08/2019 Chief complaint: Shortness of breath History of present illness: 49-year-old -[place] male with known history of asthma and HIV presenting to the emergency room today complaining of difficulty breathing which has been ongoing for the past 3 to 4 days. He has been using his inhalers and nebulizing treatments without any significant improvement. He denies any fever or chills, no nausea vomiting, no diarrhea, denies any chest pain, no hematuria or dysuria. Patient goes to [facility] for follow-up on his HIV and indicates that he has been compliant with his medications. He cannot recall his CD4 count. Upon arrival in the emergency room today he had a low-grade fever and was mildly hypoxic. He was found to be wheezing and has some nebulizing treatments. Work-up in the emergency room including CT angiogram of the chest shows multifocal pneumonia. CBC was significant for leukocytosis. Past History Past Medical History: other (Asthma) Past Surgical History: No surgical history Social history: smoking (Former smoker) Family history: no significant family history Medications and Allergies Allergies Allergy/AdvReac Type Severity Reaction Status Date / Time No Known Allergies Allergy Verified 01/05/19 10:25 Home Medications Medication Instructions Recorded Confirmed Last Taken Type ALBUTEROL Inhaler(NF) [VENTOLIN 2 puff IH Q4-6H PRN #1 inha 11/10/18 Unknown Rx Inhaler(NF)] Ibuprofen [Motrin 600 MG tab] 600 mg PO Q8H PRN #12 tablet 01/05/19 Unknown Rx Sulfamethoxazole/Trimethoprim 1 each PO BID 10 Days #20 tablet 01/05/19 Unknown Rx [Bactrim DS TAB] Doxycycline Hyclate [Doxycycline 100 mg PO BID 8 Days #14 tab 04/26/19 Unknown Rx Hyclate TAB] Sulfamethoxazole/Trimethoprim 2 each PO QID 21 Days #168 tablet 04/26/19 Unknown Rx [Bactrim DS TAB] Ipratropium (Nf) [Atrovent] 2 puff IH Q6HR PRN #1 inha 12/07/19 Unknown Rx Prednisone [predniSONE 10 mg 10 mg PO .TAPER #1 tab.ds.pk 12/07/19 Unknown Rx (6-Day Pack, 21 Tabs)] Amlodipine Besylate/Benazepril 10 mg pe PO DAILY 12/08/19 12/08/19 Unknown History Bictegrav/Emtricit/Tenofov Ala mg PO DAILY 12/08/19 Unknown History Active Meds: Active Medications Azithromycin 500 mg/ Sodium (Chloride) 250 mls @ 250 mls/hr IV ONCE ONE; Protocol Stop: 12/08/19 01:59 Review of Systems Constitutional: fever, no chills Ears, nose, mouth and throat: nasal discharge, no nasal congestion, no sore throat Cardiovascular: no chest pain, no palpitations Respiratory: cough, shortness of breath Gastrointestinal: no abdominal pain, no nausea, no vomiting, no diarrhea Genitourinary Male: no dysuria, no hematuria, no flank pain Musculoskeletal: no neck pain, no low back pain Integumentary: no rash, no pruritis Neurological: no headaches, no confusion Psychiatric: no anxiety, no depression Exam - Constitutional Vitals: Temp Pulse Resp BP Pulse Ox 98.4 F 92 H 20 144/79 96 12/07/19 20:35 12/07/19 22:32 12/07/19 22:32 12/07/19 21:51 12/07/19 21:19 General appearance: Present: no acute distress, well-nourished - EENT Eyes: Present: PERRL, EOM intact ENT: hearing intact, clear oral mucosa, dentition normal - Neck Neck: Present: supple, normal ROM - Respiratory Respiratory effort: normal Respiratory: bilateral: wheezing - Cardiovascular Rhythm: regular Heart Sounds: Present: S1 & S2 - Extremities Extremities: no ischemia, No edema, Full ROM Peripheral Pulses: within normal limits - Abdominal General gastrointestinal: Present: soft, non-tender, non-distended, normal bowel sounds - Integumentary Integumentary: Present: clear, warm, dry - Musculoskeletal Musculoskeletal: strength equal bilaterally - Psychiatric Psychiatric: appropriate mood/affect, intact judgment & insight, cooperative - Neurologic Neurologic: CNII-XII intact, moves all extremities Results - Labs CBC & Chem 7: 12/07/19 Unknown 12/08/19 01:12 Labs: Abnormal lab results 12/07/19 12/07/19 Range/Units Unknown Unknown WBC 16.2 H (4.5-11.0) K/mm3 MCV 79 L (84-94) fl MCH 27 L (28-32) pg RDW 17.7 H (13.2-15.2) % Lymph % (Auto) 7.6 L (13.4-35.0) % Eos # 0.5 H (0.0-0.4) K/mm3 Seg Neutrophils % 85.0 H (40.0-70.0) % Seg Neutrophils # 13.8 H (1.8-7.7) K/mm3 Glucose 116 H (75-100) mg/dL Assessment and Plan - Patient Problems (1) Pneumonia Current Visit: Yes Status: Acute Plan to address problem: Patient admitted and placed on empiric IV antibiotics. We also rule out for COV ID-19. Will place on droplet precautions and place a consult to infectious disease for further evaluation and recommendation. (2) Asthma Current Visit: Yes Status: Acute Plan to address problem: We will continue patient on nebulizing treatments and IV steroids. (3) HIV positive Current Visit: Yes Status: Acute Plan to address problem: Patient follows up at [facility] for his care. He has been compliant with his medications. He cannot recall his CD4 counts. (4) DVT prophylaxis Current Visit: Yes Status: Acute Plan to address problem: Patient placed on subcutaneous heparin. (5) Full code status Current Visit: Yes Status: Acute
[2019-12-08] MEDS ORDERED: IPRATROPIUM/ALBUTEROL SULFATE 3 ML AMPUL.NEB IH ONE ×2 (02:23→07:47)
[2019-12-08] MEDS: IPRATROPIUM/ALBUTEROL SULFATE 3 ML AMPUL.NEB IH SCH ×5 (05:03→19:29)
[2019-12-08 05:25] LABS: C-Reactive Protein 14.2 mg/dL (0.00-1.30)
[2019-12-08] MEDS ORDERED: methylPREDNISolone Sod Succinate 40 MG/1 ML INJ ONE (05:58)
[2019-12-08] MEDS ORDERED: HEPARIN 5,000 UNIT/1 ML VIAL ONE (05:58)
[2019-12-08] MEDS: HEPARIN 5,000 UNIT/1 ML VIAL SUB-Q SCH ×3 (06:06→21:57)
[2019-12-08] MEDS: methylPREDNISolone Sod Succinate 40 MG/1 ML INJ IV SCH ×3 (06:12→21:56)
[2019-12-08] MEDS ORDERED: AZITHROMYCIN 500 MG in SODIUM CHLORIDE 0.9% 250ML 250 ML IV SCH (10:00)
--- NOTE | 2019-12-08 11:59 | Consultation ---
History of Present Illness - Reason for Consult Consult date: 12/08/19 COVID rule out, pneumonia Requesting physician: SIGIFREDO PAGE - History of Present Illness The patient is a 49-year-old male with asthma, HIV on medications, follows up at [place] was admitted to the hospital after he presented to the emergency room today with complaints of cough and shortness of breath for 3 to 4 days prior to admission. Upon evaluation, CT scan of his chest showed a multifocal pneumonia and CBC showed leukocytosis. Patient was admitted to the hospital, started on empiric antibiotics. COVID test is pending, remains on isolation. Infectious diseases was consulted for additional evaluation. Patient is on Biktarvy but does not recall his most recent CD4 count. He is currently afebrile, on room air. Review of Systems: reviewed in the chart, unable to obtain directly due to PPE shortage and preservation Past History Past Medical History: other (Asthma) Past Surgical History: No surgical history Social history: smoking (Former smoker) Family history: no significant family history Medications and Allergies Allergies Allergy/AdvReac Type Severity Reaction Status Date / Time No Known Allergies Allergy Verified 01/05/19 10:25 Home Medications Medication Instructions Recorded Confirmed Last Taken Type ALBUTEROL Inhaler(NF) [VENTOLIN 2 puff IH Q4-6H PRN #1 inha 11/10/18 Unknown Rx Inhaler(NF)] Ibuprofen [Motrin 600 MG tab] 600 mg PO Q8H PRN #12 tablet 01/05/19 Unknown Rx Sulfamethoxazole/Trimethoprim 1 each PO BID 10 Days #20 tablet 01/05/19 Unknown Rx [Bactrim DS TAB] Doxycycline Hyclate [Doxycycline 100 mg PO BID 8 Days #14 tab 04/26/19 Unknown Rx Hyclate TAB] Sulfamethoxazole/Trimethoprim 2 each PO QID 21 Days #168 tablet 04/26/19 Unknown Rx [Bactrim DS TAB] Ipratropium (Nf) [Atrovent] 2 puff IH Q6HR PRN #1 inha 12/07/19 Unknown Rx Prednisone [predniSONE 10 mg 10 mg PO .TAPER #1 tab.ds.pk 12/07/19 Unknown Rx (6-Day Pack, 21 Tabs)] Amlodipine Besylate/Benazepril 10 mg pe PO DAILY 12/08/19 12/08/19 Unknown History Bictegrav/Emtricit/Tenofov Ala mg PO DAILY 12/08/19 Unknown History Active Meds: Active Medications Albuterol/Ipratropium (Duoneb *Not For Prn Use*) 1 ampul IH Q6HRT [facility] Last Admin: 12/08/19 07:50 Dose: 1 ampul Documented by: Azithromycin (Zithromax) 500 mg PO Q24HR@2200 [facility] Stop: 12/11/19 22:01 Heparin Sodium (Porcine) (Heparin) 5,000 unit SUB-Q Q8HR [facility] Last Admin: 12/08/19 06:06 Dose: 5,000 unit Documented by: Sodium Chloride (Nacl 0.9% 1000 Ml) 1,000 mls @ 125 mls/hr IV DIRECT [facility] Ceftriaxone Sodium (Rocephin/Ns 2 Gm/100 Ml) 2 gm in 100 mls @ 200 mls/hr IV Q24HR@2200 [facility]; Protocol Magnesium Hydroxide (Milk Of Magnesia) 30 ml PO Q4H PRN PRN Reason: Constipation Methylprednisolone Sodium Succinate (Solu-Medrol) 40 mg IV Q8HR [facility] Last Admin: 12/08/19 06:12 Dose: 40 mg Documented by: Ondansetron HCl (Zofran) 4 mg IV Q8H PRN PRN Reason: Nausea And Vomiting Sodium Chloride (Sodium Chloride Flush Syringe 10 Ml) 10 ml IV BID [facility] Sodium Chloride (Sodium Chloride Flush Syringe 10 Ml) 10 ml IV PRN PRN PRN Reason: LINE FLUSH Physical Examination - Physical Exam Narrative exam: Physical Exam (reviewed in chart due to PPE conservation) Constitutional: limited due to PPE conservation strategy Head, Ears, Nose: limited due to PPE conservation strategy Eyes: limited due to PPE conservation strategy Neck: limited due to PPE conservation strategy Oral: limited due to PPE conservation strategy Cardiovascular: limited due to PPE conservation strategy Respiratory: limited due to PPE conservation strategy GI: limited due to PPE conservation strategy Musculoskeletal: limited due to PPE conservation strategy Skin: limited due to PPE conservation strategy Hem/Lymphatic: limited due to PPE conservation strategy Psych: limited due to PPE conservation strategy Neurological: limited due to PPE conservation strategy - Constitutional Vitals: Vital Signs Temp Pulse Resp BP Pulse Ox 98.4 F 85 18 133/83 97 12/07/19 20:35 12/08/19 07:51 12/08/19 07:51 12/08/19 06:31 12/08/19 06:31 Temperature -Last 24 Hours Temperature 98.4 F Results - Labs CBC & Chem 7: 12/07/19 Unknown 12/08/19 01:12 Labs: Abnormal lab results 12/07/19 12/07/19 12/08/19 Range/Units Unknown Unknown 01:12 WBC 16.2 H (4.5-11.0) K/mm3 MCV 79 L (84-94) fl MCH 27 L (28-32) pg RDW 17.7 H (13.2-15.2) % Lymph % (Auto) 7.6 L (13.4-35.0) % Eos # 0.5 H (0.0-0.4) K/mm3 Seg Neutrophils % 85.0 H (40.0-70.0) % Seg Neutrophils # 13.8 H (1.8-7.7) K/mm3 Glucose 116 H 198 H (75-100) mg/dL C-Reactive Protein 14.20 H (0.00-1.30) mg/dL - Imaging and Cardiology CT scan - chest: report reviewed, image reviewed (b/l focal infiltrates) Assessment and Plan Cultures: 12/08/2019 blood culture: In process A/P: 49-year-old male with asthma, HIV on medications, follows up at [place]: #Bilateral pneumonia: Agree with COVID rule out. Continue empiric antibiotics to cover community-acquired pneumonia. #HIV disease: Check CD4 count and HIV viral load. Continue Biktarvy, medication is nonformulary. #Asthma with acute exacerbation: On nebulizations and steroids. Recs: Follow-up COVID-19 PCR Continue ceftriaxone, azithromycin Check HIV viral load and CD4 count Continue Biktarvy, patient to use his own supply, alternatively, may need to switch to Truvada plus dolutegravir [place] for steroids from ID standpoint Pedrito Talley MD, FACP [facility] ([facility] C: [phone] O: [phone] F: [phone]
[2019-12-08] MEDS ORDERED: NON-FORMULARY EACH (Biktarvy 1 TAB) PO SCH (12:00)
--- NOTE | 2019-12-08 12:53 | Event Note ---
Date: 12/08/19 Patient seen and examined The patient is a 49-year-old male with asthma, HIV on medications, was admitted for cough and shortness of breath for 3 to 4 days prior to admission. Upon evaluation, CT scan of his chest showed a multifocal pneumonia and CBC showed leukocytosis. Patient was admitted to the hospital, started on empiric antibiotics. COVID test is pending, remains on isolation. Cont current Mx and plan, follow ID recommendation
[2019-12-08] MEDS ORDERED: AZITHROMYCIN 250 MG TAB PO SCH (22:00)
[2019-12-08] MEDS ORDERED: cefTRIAXone/NS 2 GM/100 ML 2 GM/100 ML BAG IV SCH (22:00)
[2019-12-08] MEDS: SODIUM CHLORIDE 0.9% 1000 ML 1,000 ML IV SCH (22:05)
[2019-12-09] MEDS: IPRATROPIUM/ALBUTEROL SULFATE 3 ML AMPUL.NEB IH SCH ×3 (02:24→13:40)
[2019-12-09] MEDS: methylPREDNISolone Sod Succinate 40 MG/1 ML INJ IV SCH (05:30)
[2019-12-09] MEDS: HEPARIN 5,000 UNIT/1 ML VIAL SUB-Q SCH (05:30)
[2019-12-09] MEDS: SODIUM CHLORIDE 0.9% 1000 ML 1,000 ML IV SCH ×2 (05:31→13:45)
[2019-12-09 05:44] LABS: Basophils % (Auto) 0.1 % (0.0-1.8); Hemoglobin 13.1 gm/dl (11.8-15.2); Lymphocytes # (Auto) 1.2 K/mm3 (1.2-5.4); Lymphocytes % (Auto) 6.8 % (13.4-35.0); Mean Corpuscular HGB Conc 33 % (32-34); Mean Corpuscular Volume 81 fl (84-94); Monocytes # (Auto) 0.6 K/mm3 (0.0-0.8); Monocytes % (Auto) 3.1 % (0.0-7.3); Platelet Count 239 K/mm3 (140-440); Red Blood Count 4.96 M/mm3 (3.65-5.03); Red Cell Distribution Width 18.2 % (13.2-15.2)
[2019-12-09 05:51] LABS: INR 1.06 (0.87-1.13)
[2019-12-09 06:00] LABS: BUN/Creatinine Ratio 22; Blood Urea Nitrogen 24 mg/dL (9-20); Calcium 9.6 mg/dL (8.4-10.2); Hemolysis Index 7
--- NOTE | 2019-12-09 12:06 | Discharge Summary ---
Providers - Providers Date of Admission: 12/08/19 01:23 Date of discharge: 12/09/19 Attending physician: SCOTT RATLIFF 12/08/19 01:17 Consult to Dietitian/Nutrition [CONS] Routine Physician Instructions: Reason For Exam: Reason for Consult: Diet education Consult to Physician [CONS] Routine Comment: Consulting Provider: CONOR STORY Physician Instructions: Reason For Exam: Pneumonia,HYPOXIA, R/O COVID 19 Primary care physician: CENTRAL SERVICE TECHNICIAN Hospitalization Condition: Stable Hospital course: The patient is a 49-year-old male with asthma, HIV on medications, follows up at [place] was admitted to the hospital after he presented to the emergency room with complaints of cough and shortness of breath for 3 to 4 days prior to admission. Upon evaluation, CT scan of his chest showed a multifocal pneumonia and CBC showed leukocytosis. Patient was admitted to the hospital, started on empiric antibiotics, scheduled nebs. His COVID test was negative. ID was consulted and recommended to d/c home with ceftin and doxycycline. He was then discharged home in stable condition. Discharge diagnosis: #Bilateral pneumonia with sepsis: COVID ruled out. Continue empiric antibiotics to cover community-acquired pneumonia. #HIV disease: ordered CD4 count and HIV viral load. Continue Biktarvy, m edication is nonformulary. #Asthma with acute exacerbation: placed On nebulizations and steroids. Disposition: DC- TO HOME OR SELFCARE Time spent for discharge: 34 minutes Core Measure Documentation - Palliative Care Palliative Care/ Comfort Measures: Not Applicable - Core Measures Any of the following diagnoses?: none Exam - Constitutional Vitals: Temp Pulse Resp BP Pulse Ox 98.0 F 72 18 148/90 90 12/09/19 11:03 12/09/19 11:03 12/09/19 11:03 12/09/19 11:03 12/09/19 11:03 General appearance: Present: no acute distress, well-nourished - EENT Eyes: Present: PERRL ENT: hearing intact, clear oral mucosa - Neck Neck: Present: supple, normal ROM - Respiratory Respiratory effort: normal Respiratory: bilateral: CTA - Cardiovascular Heart Sounds: Present: S1 & S2. Absent: rub, click - Extremities Extremities: pulses symmetrical, No edema Peripheral Pulses: within normal limits - Abdominal General gastrointestinal: Present: soft, non-tender, non-distended, normal bowel sounds - Integumentary Integumentary: Present: clear, warm, dry - Musculoskeletal Musculoskeletal: gait normal, strength equal bilaterally - Psychiatric Psychiatric: appropriate mood/affect, intact judgment & insight - Neurologic Neurologic: CNII-XII intact, moves all extremities Plan Activity: advance as tolerated Weight Bearing Status: Weight Bear as Tolerated Diet: low fat Follow up with: PRIMARY CARE, [Primary Care Provider] - 3-5 Days MERVAT CHRISTOPHER MD [Staff Physician] - 7 Days Prescriptions: Ipratropium (Nf) [Atrovent] 2 puff IH Q6HR PRN #1 inha PRN Reason: Shortness Of Breath cefUROXime [Ceftin] 500 mg PO Q12H #8 tablet predniSONE [Deltasone] 50 mg PO QDAY #5 tab Azithromycin [Zithromax] 500 mg PO BID #8 tablet
--- NOTE | 2019-12-09 13:29 | Progress Note ---
Assessment and Plan Cultures: 12/08/2019 blood culture: negative COVID-19 PCR negative A/P: 49-year-old male with asthma, HIV on medications, follows at [facility]: #Bilateral pneumonia: COVID-19 PCR negative. Continue empiric antibiotics to cover community-acquired pneumonia. #HIV disease: Continue Biktarvy, medication is nonformulary. On Biktarvy at least for the last 1 year. On other medicines for a year before that. Last seen in [facility] in July 2019 and was reportedly doing well. He is not on any OI prophylaxis at this time. #Asthma with acute exacerbation: On nebulizations and steroids. Recs: Ok for discharge on PO Ceftin 500 mg BID + Azithromycin 500 mg BID x 4 more days Continue Biktarvy Patient to follow up with his HIV provider at [facility] Pedrito Talley MD, FACP [facility] ([facility] C: [phone] O: [phone] F: [phone] Subjective Date of service: 12/09/19 Interval history: No fever. Breathing is much improved. Patient wants to go home. He reports very good compliance with Biktarvy. Objective - Exam Narrative Exam: Physical Exam: Constitutional: Alert, cooperative. No acute distress Head, Ears, Nose: Normocephalic, atraumatic. External ears, nose normal Eyes: Conjunctivae/corneas clear. No icterus. No ptosis. Neck: Supple, no meningeal signs Cardiovascular: S1, S2 normal. Respiratory: Bilateral basal crackles and expiratory wheeze GI: Soft, non-tender; bowel sounds normal. No peritoneal signs Musculoskeletal: No pedal edema, no cyanosis. Skin: No rash or abscess Hem/Lymphatic: No palpable cervical or supraclavicular nodes. No lymphangitis Psych: Mood ok. Affect normal Neurological: Awake, alert, oriented. No gross abnormality - Constitutional Vitals: Vital Signs Temp Pulse Resp BP Pulse Ox 98.0 F 72 18 148/90 90 12/09/19 11:03 12/09/19 11:03 12/09/19 11:03 12/09/19 11:03 12/09/19 11:03 Temperature -Last 24 Hours Temperature 98.0 F Temperature 97.5 F Temperature 98.6 F Temperature 98.3 F - Labs CBC & Chem 7: 12/09/19 04:53 12/09/19 04:53 Labs: Abnormal lab results 12/09/19 12/09/19 Range/Units 04:53 04:53 WBC 17.9 H (4.5-11.0) K/mm3 MCV 81 L (84-94) fl MCH 27 L (28-32) pg RDW 18.2 H (13.2-15.2) % Lymph % (Auto) 6.8 L (13.4-35.0) % Seg Neutrophils % 90.0 H (40.0-70.0) % Seg Neutrophils # 16.1 H (1.8-7.7) K/mm3 BUN 24 H (9-20) mg/dL Glucose 124 H (75-100) mg/dL
[2019-12-09 15:54] VITALS: BP 146/81
== END 2019-12-09 15:50 | disposition home or self-care (01) | DRG 871 ==
LOC: ED 20:33 → IMCU 12-08 01:23 → CC1 12-08 09:27 → IMCU 12-08 19:32
PROVIDERS: ADMIT Internal Medicine Geriatric Medicine; ATTEND Internal Medicine
DX: A41.9 Sepsis, unspecified organism (principal); J18.9 Pneumonia, unspecified organism; J45.901 Unspecified asthma with (acute) exacerbation; I10 Essential (primary) hypertension; F17.210 Nicotine dependence, cigarettes, uncomplicated; Z21 Asymptomatic human immunodeficiency virus [HIV] infection status; Z71.6 Tobacco abuse counseling; Z03.818 Encounter for observation for suspected exposure to other biological agents ruled out
CPT/HCPCS: 36415; 71045; 71275; 80048; 82728; 82947; 83615; 84145; 85025; 85379; 85610; 86140; 87040; 94640; 94644; 99406; G0378; J0456; J0696; J1100; J1644; J2920; J3475; J7030; J7050; Q9967; U0003-CS

== ENCOUNTER 2021-06-28 23:50 | Emergency (ER) | payer SELFPAY ==
[2021-06-29 00:05] VITALS: BP 133/88
[2021-06-29 01:14] LABS: Basophils # (Auto) 0.1 K/mm3 (0.0-0.1); Basophils % (Auto) 0.5 % (0.0-1.8); Eosinophils # (Auto) 0.3 K/mm3 (0.0-0.4); Eosinophils % (Auto) 2.4 % (0.0-4.3); Hematocrit 45.7 % (35.5-45.6); Hemoglobin 14.8 gm/dl (11.8-15.2); Lymphocytes # (Auto) 2.3 K/mm3 (1.2-5.4); Lymphocytes % (Auto) 17.7 % (13.4-35.0); Mean Corpuscular HGB Conc 32 % (32-34); Mean Corpuscular Volume 82 fl (84-94); Monocytes # (Auto) 1.3 K/mm3 (0.0-0.8); Monocytes % (Auto) 9.6 % (0.0-7.3); Platelet Count 246 K/mm3 (140-440); Red Blood Count 5.58 M/mm3 (3.65-5.03); Red Cell Distribution Width 16.2 % (13.2-15.2)
--- NOTE | 2021-06-29 01:29 | XRay Report ---
CHEST 2 VIEWS INDICATION / CLINICAL INFORMATION: Dyspnea. COMPARISON: One view of the chest from 12/07/2019. FINDINGS: SUPPORT DEVICES: None. HEART / MEDIASTINUM: No significant abnormality. LUNGS / PLEURA: No significant pulmonary abnormality. No significant pleural effusion. No pneumothora x. ADDITIONAL FINDINGS: No significant additional findings. IMPRESSION: 1. No acute abnormality of the chest. Signer Name: Davion Saeed MD Signed: 06/29/2021 1:24 AM Workstation Name: [id number]
[2021-06-29 01:40] LABS: Albumin 4.3 g/dL (3.9-5); Calcium 9.8 mg/dL (8.4-10.2)
[2021-06-29] MEDS ORDERED: IPRATROPIUM/ALBUTEROL SULFATE 3 ML AMPUL.NEB IH ONE (02:30)
[2021-06-29] MEDS ORDERED: dexAMETHasone 20 MG/5 ML VIAL IM ONE (02:30)
--- NOTE | 2021-06-29 02:33 | Emergency Department Report ---
ED General Adult HPI - General Chief complaint: Dyspnea/Respdistress Stated complaint: SOB Time Seen by Provider: 06/29/21 02:28 Source: patient Mode of arrival: Ambulatory Limitations: No Limitations - History of Present Illness Initial comments: Patient 50-year-old male history of asthma who presents with shortness of breath and chest tightness for 2 days. Patient states symptoms not improved with albuterol inhaler been no fevers, chills, no malaise no nausea vomiting no lightheadedness no dizziness. Patient states this is usual progression of an asthma attack. Usual regimen is albuterol nebulizer as needed. Patient denies other exacerbating or relieving factors. - Related Data Home Medications Medication Instructions Recorded Confirmed Last Taken Amlodipine Besylate/Benazepril 10 mg pe PO DAILY 12/08/19 12/08/19 12/05/19 21:00 Bictegrav/Emtricit/Tenofov Ala 1 tab PO DAILY 12/08/19 12/08/19 12/05/19 21:00 Previous Rx's Medication Instructions Recorded Last Taken Type ALBUTEROL Inhaler(NF) [VENTOLIN 2 puff IH Q4-6H PRN #1 inha 11/10/18 12/06/19 22:00 Rx Inhaler(NF)] Ipratropium (Nf) [Atrovent] 2 puff IH Q6HR PRN #1 inha 12/07/19 Unknown Rx Azithromycin [Zithromax] 500 mg PO BID #8 tablet 12/09/19 Unknown Rx cefUROXime [Ceftin] 500 mg PO Q12H #8 tablet 12/09/19 Unknown Rx predniSONE [Deltasone] 50 mg PO QDAY #5 tab 12/09/19 Unknown Rx Albuterol Mdi (or & Nicu Only) 2 puff IH QID PRN #8.5 gram 06/29/21 Unknown Rx [ProAir HFA Inhaler] Azithromycin 500 mg PO DAILY #5 tablet 06/29/21 Unknown Rx dexAMETHasone [Decadron] 4 mg PO BID 5 Days #10 tablet 06/29/21 Unknown Rx Allergies Allergy/AdvReac Type Severity Reaction Status Date / Time No Known Allergies Allergy Verified 01/05/19 10:25 ED Review of Systems ROS: Stated complaint: SOB Other details as noted in HPI Constitutional: denies: chills, fever Eyes: denies: eye pain, eye discharge, vision change ENT: denies: ear pain, throat pain Respiratory: cough, shortness of breath, wheezing Cardiovascular: denies: chest pain, palpitations Endocrine: no symptoms reported Gastrointestinal: denies: abdominal pain, nausea, vomiting, diarrhea Genitourinary: denies: urgency, dysuria Musculoskeletal: denies: back pain, joint swelling, arthralgia Skin: denies: rash, lesions Neurological: denies: headache, weakness, paresthesias Psychiatric: denies: anxiety, depression Hematological/Lymphatic: denies: easy bleeding, easy bruising ED Past Medical Hx - Past Medical History Hx Hypertension: Yes Hx Heart Attack/AMI: No Hx Congestive Heart Failure: No Hx Diabetes: No Hx Deep Vein Thrombosis: No Hx Pulmonary Embolism: No Hx GERD: No Hx Arthritis: No Hx Headaches / Migraines: No Hx Seizures: No Hx Asthma: Yes Hx COPD: No Hx Tuberculosis: No Hx HIV: No - Surgical History Hx Coronary Stent: No Hx Open Heart Surgery: No Hx Pacemaker: No Hx Internal Defibrillator: No Hx Cholecystectomy: No Hx Appendectomy: No Hx Breast Surgery: No - Social History Smoking Status: Current Some Day Smoker - Medications Home Medications: Home Medications Medication Instructions Recorded Confirmed Last Taken Type ALBUTEROL Inhaler(NF) [VENTOLIN 2 puff IH Q4-6H PRN #1 inha 11/10/18 12/08/19 12/06/19 22:00 Rx Inhaler(NF)] Ipratropium (Nf) [Atrovent] 2 puff IH Q6HR PRN #1 inha 12/07/19 Unknown Rx Amlodipine Besylate/Benazepril 10 mg pe PO DAILY 12/08/19 12/08/19 12/05/19 21:00 History Bictegrav/Emtricit/Tenofov Ala 1 tab PO DAILY 12/08/19 12/08/19 12/05/19 21:00 History Azithromycin [Zithromax] 500 mg PO BID #8 tablet 12/09/19 Unknown Rx cefUROXime [Ceftin] 500 mg PO Q12H #8 tablet 12/09/19 Unknown Rx predniSONE [Deltasone] 50 mg PO QDAY #5 tab 12/09/19 Unknown Rx Albuterol Mdi (or & Nicu Only) 2 puff IH QID PRN #8.5 gram 06/29/21 Unknown Rx [ProAir HFA Inhaler] Azithromycin 500 mg PO DAILY #5 tablet 06/29/21 Unknown Rx dexAMETHasone [Decadron] 4 mg PO BID 5 Days #10 tablet 06/29/21 Unknown Rx ED Physical Exam - General Limitations: No Limitations General appearance: alert, in no apparent distress - Head Head exam: Present: normocephalic, normal inspection - Eye Eye exam: Present: normal appearance, PERRL, EOMI. Absent: conjunctival injection, nystagmus Pupils: Present: normal accommodation - ENT ENT exam: Present: normal exam, mucous membranes moist, TM's normal bilaterally, normal external ear exam - Neck Neck exam: Present: normal inspection - Respiratory Respiratory exam: Present: normal lung sounds bilaterally, wheezes, chest wall tenderness (Anterior chest wall to deep palpation no crepitus no ecchymosis no swelling no step-off). Absent: respiratory distress, rales, rhonchi, stridor - Cardiovascular Cardiovascular Exam: Present: regular rate, normal rhythm, normal heart sounds. Absent: systolic murmur, diastolic murmur, rubs, gallop - GI/Abdominal GI/Abdominal exam: Present: soft, normal bowel sounds. Absent: distended, tenderness - Rectal Rectal exam: Present: deferred - Extremities Exam Extremities exam: Present: normal inspection, full ROM, normal capillary refill. Absent: tenderness - Back Exam Back exam: Present: normal inspection, full ROM. Absent: CVA tenderness (R), CVA tenderness (L) - Neurological Exam Neurological exam: Present: alert, oriented X3, CN II-XII intact, normal gait - Expanded Neurological Exam Expanded Patient oriented to: Present: person, place, time Speech: Present: fluid speech Motor strength exam: RUE: 5, LUE: 5, RLE: 5, LLE: 5 Best Eye Response (Sabina): (4) open spontaneously Best Motor Response ([place]): (6) obeys commands Best Verbal Response (Sabina): (5) oriented Sabina Total: 15 - Psychiatric Psychiatric exam: Present: normal affect, normal mood - Skin Skin exam: Present: warm, dry, intact, normal color. Absent: rash ED Course Vital Signs 06/29/21 00:02 Pulse Rate 115 H Respiratory 24 Rate Blood Pressure 133/88 [Left] O2 Sat by Pulse 92 Oximetry ED Medical Decision Making - Lab Data Result diagrams: 06/29/21 01:00 06/29/21 01:00 - Radiology Data Radiology results: report reviewed, image reviewed CHEST 2 VIEWS INDICATION / CLINICAL INFORMATION: Dyspnea. COMPARISON: One view of the chest from 12/07/2019. FINDINGS: SUPPORT DEVICES: None. HEART / MEDIASTINUM: No significant abnormality. LUNGS / PLEURA: No significant pulmonary abnormality. No significant pleural effusion. No pneumothorax. ADDITIONAL FINDINGS: No significant additional findings. IMPRESSION: 1. No acute abnormality of the chest. Signer Name: Davion Saeed MD Signed: 06/29/2021 1:24 AM Workstation Name: [id number] Transcribed By: LINDA Dictated By: Davion Saeed MD Electronically Authenticated By: Davion Saeed MD Signed Date/Time: 06/29/21 0124 - Medical Decision Making Checks x-ray normal no opacities no infiltrate, this is asthma exacerbation. Patient will be DC'd to home with prescriptions, will follow with primary care doctor in 2 to 3 days. Patient will return to emergency department should symptoms worsen. Patient verbalized agreement and understanding with discharge plan. Patient DC'd home in stable condition at this time. Critical care attestation.: If time is entered above; I have spent that time in minutes in the direct care of this critically ill patient, excluding procedure time. ED Disposition Clinical Impression: Asthma Qualifiers: Asthma severity: moderate Asthma persistence: unspecified Asthma complication type: with acute exacerbation Qualified Code(s): J45.901 - Unspecified asthma with (acute) exacerbation Disposition: 01 HOME / SELF CARE / HOMELESS Is pt being admited?: No Does the pt Need Aspirin: No Condition: Stable Instructions: Asthma, Adult, Asthma, Adult, Nghm-xy-Ngpi, Asthma and Physical Activity, Asthma (ED) Additional Instructions: Take medications as prescribed Prescriptions: Azithromycin 500 mg PO DAILY #5 tablet dexAMETHasone [Decadron] 4 mg PO BID 5 Days #10 tablet Albuterol Mdi (or & Nicu Only) [ProAir HFA Inhaler] 2 puff IH QID PRN #8.5 gram PRN Reason: Shortness Of Breath Referrals: TAMARA GALICIA MD [Staff Physician] - 3-5 Days Forms: Work/School Release Form(ED) Time of Disposition: 04:59
== END 2021-06-29 05:31 | disposition home or self-care (01) ==
LOC: ED 23:50
DX: J45.909 Unspecified asthma, uncomplicated (principal); I10 Essential (primary) hypertension
CPT/HCPCS: 36415; 71046; 80053; 85025; 96372; 99284; J1100